=== PATIENT | female | born 2000 | race Caucasian/White ===

== ENCOUNTER 2020-07-28 18:34 | Emergency (ER) | payer OTHER ==
[~2020-07-28 18:34] MED LIST: CARAFATE S500 MG/TSP PO; MACROBID100 MG PO; METRONIDAZOLE500 MG PO; ZOFRAN8 MG PO
[2020-07-28 20:57] LABS: BASOPHIL 0.6 % (0-2); EOSINOPHIL 3.9 % (0-5); HCT 42.4 % (37.0-47.0); HGB 13.7 g/dl (12.5-16.0); LYMPHOCYTE 22.3 % (15-48); MCH 29.7 pg (25.0-31.0); MCHC 32.3 g/dL (32.0-36.0); MCV 91.8 fL (78.0-100.0); MONOCYTE 7.3 % (0-12); MPV 10.5 fL (6.0-9.5); NEUTROPHIL 65.5 % (41-80); NRBC 0; PLT 307 K/uL (150-400); RBC 4.62 M/uL (4.20-5.40); RDW 12.3 % (11.5-14.0); WBC 6.9 K/uL (4.0-10.5)
[2020-07-28 21:13] LABS: CREATININE 0.8 mg/dL (0.51-0.95); POTASSIUM 3.8 mmol/L (3.5-5.1)
[2020-07-28 21:19] LABS: BILIRUBIN NEGATIVE (NEGATIVE); BLOOD NEGATIVE Ery/uL (NEGATIVE); CLARITY CLEAR (CLEAR); COLOR YELLOW (YELLOW); GLUCOSE (U) NORMAL (NORMAL); LEUKOCYTES NEGATIVE Leu/uL (NEGATIVE); NITRITE NEGATIVE (NEGATIVE); PROTEIN NEGATIVE (NEGATIVE); SPECIFIC GRAVITY 1.025 (1.001-1.030); UROBILINOGEN 0.2 mg/dL (0.2-1.0)
[2020-07-28 21:23] LABS: AMPHETAMINES NEGATIVE (NEGATIVE); BARBITURATES NEGATIVE (NEGATIVE); ECSTASY (MDMA) NEGATIVE (NEGATIVE); MARIJUANA (THC) NEGATIVE (NEGATIVE); METHADONE NEGATIVE (NEGATIVE); OPIATES NEGATIVE (NEGATIVE); OXYCODONE NEGATIVE (NEGATIVE)
[2020-07-28] MEDS ORDERED: NAPROXEN500 MG PO (22:10)
== END 2020-07-28 22:20 | disposition home or self-care (01) ==
LOC: FER 18:34
PROVIDERS: Nurse Practitioner Family
DX: S00.83XA Contusion of other part of head, initial encounter (principal); M26.603 Bilateral temporomandibular joint disorder, unspecified; R42 Dizziness and giddiness; F17.210 Nicotine dependence, cigarettes, uncomplicated; W19.XXXA Unspecified fall, initial encounter; Y92.008 Other place in unspecified non-institutional (private) residence as the place of occurrence of the external cause
CPT/HCPCS: 36415; 70450; 70486; 72125; 80048; 80305; 81003; 85025; 96372; J1100; J1885

== ENCOUNTER 2020-09-11 03:01 | Emergency (ER) | payer OTHER ==
[~2020-09-11 03:01] MED LIST changes: +NAPROXEN500 MG PO
[2020-09-11] MEDS ORDERED: ROBAXIN500 MG PO (04:20)
[2020-09-11] MEDS ORDERED: IBUPROFEN800 MG PO (04:20)
[2020-09-11] MEDS ORDERED: NORCO 5-325 TA1 EACH PO (04:20)
== END 2020-09-11 04:35 | disposition home or self-care (01) ==
LOC: FER 03:01
DX: M54.9 Dorsalgia, unspecified (principal)
CPT/HCPCS: J1100; J1885; J2270; J2405; J2800; J7050

== ENCOUNTER 2020-11-15 19:20 | Emergency (ER) | payer OTHER ==
[~2020-11-15 19:20] MED LIST changes: +IBUPROFEN800 MG PO; +NORCO 5-325 TA1 EACH PO; +ROBAXIN500 MG PO
[2020-11-15 21:50] LABS: BILIRUBIN NEGATIVE (NEGATIVE); BLOOD NEGATIVE Ery/uL (NEGATIVE); CLARITY CLEAR (CLEAR); COLOR YELLOW (YELLOW); GLUCOSE (U) NORMAL (NORMAL); LEUKOCYTES NEGATIVE Leu/uL (NEGATIVE); NITRITE NEGATIVE (NEGATIVE); PROTEIN NEGATIVE (NEGATIVE); SPECIFIC GRAVITY 1.025 (1.001-1.030); UROBILINOGEN 0.2 mg/dL (0.2-1.0)
[2020-11-15] MEDS ORDERED: IBUPROFEN800 MG PO (21:59)
[2020-11-15] MEDS ORDERED: ROBAXIN500 MG PO (21:59)
== END 2020-11-15 22:15 | disposition home or self-care (01) ==
LOC: FER 19:20
PROVIDERS: Nurse Practitioner Family
DX: G89.29 Other chronic pain (principal); M54.5 Low back pain; M54.6 Pain in thoracic spine; Z79.899 Other long term (current) drug therapy; X50.0XXA Overexertion from strenuous movement or load, initial encounter
CPT/HCPCS: 81003; 96372; 99283; J1100; J1885

== ENCOUNTER 2021-01-18 22:24 | Emergency (ER) | payer OTHER ==
[2021-01-18 23:10] LABS: BILIRUBIN 3+ mg/dL (NEGATIVE); BLOOD NEGATIVE Ery/uL (NEGATIVE); GLUCOSE (U) NORMAL (NORMAL); LEUKOCYTES TRACE Leu/uL (NEGATIVE); NITRITE POSITIVE (NEGATIVE); PROTEIN 1+ mg/dL (NEGATIVE); UROBILINOGEN >=8.0 mg/dL (0.2-1.0)
[2021-01-18 23:20] LABS: CLARITY SLIGHTLY HAZY (CLEAR); COLOR ORANGE (YELLOW)
[2021-01-18 23:25] LABS: BACTERIA TRACE
[2021-01-18 23:26] LABS: MUCOUS TRACE
[2021-01-18 23:33] LABS: BASOPHIL 0.7 % (0-2); EOSINOPHIL 0.8 % (0-5); HCT 41.4 % (37.0-47.0); HGB 13.8 g/dl (12.5-16.0); LYMPHOCYTE 11.3 % (15-48); MCH 29.2 pg (25.0-31.0); MCHC 33.3 g/dL (32.0-36.0); MCV 87.5 fL (78.0-100.0); MONOCYTE 6.4 % (0-12); MPV 10.7 fL (6.0-9.5); NEUTROPHIL 80.4 % (41-80); NRBC 0; PLT 264 K/uL (150-400); RBC 4.73 M/uL (4.20-5.40); RDW 12.8 % (11.5-14.0); WBC 8.9 K/uL (4.0-10.5)
[2021-01-18 23:45] LABS: BUN/CREAT RATIO (CALC) 12.1 RATIO; CREATININE 0.66 mg/dL (0.51-0.95); POTASSIUM 3.7 mmol/L (3.5-5.1)
[2021-01-19] MEDS ORDERED: PHENERGAN25 M1 PO (00:11)
[2021-01-20] MEDS ORDERED: PROMETHAZINE HC25 MG PR (14:41)
== END 2021-01-19 00:40 | disposition home or self-care (01) ==
LOC: FER 22:24
PROVIDERS: Emergency Medicine
DX: O21.9 Vomiting of pregnancy, unspecified (principal); O99.891 Other specified diseases and conditions complicating pregnancy; M54.5 Low back pain; O99.331 Smoking (tobacco) complicating pregnancy, first trimester; F17.200 Nicotine dependence, unspecified, uncomplicated; Z3A.01 Less than 8 weeks gestation of pregnancy
CPT/HCPCS: 36415; 80048; 81001; 85025; J2550; J7120

== ENCOUNTER 2021-01-20 11:25 | Emergency (ER) | payer OTHER ==
[~2021-01-20 11:25] MED LIST changes: +PHENERGAN25 M1 PO
[2021-01-20 13:05] LABS: BASOPHIL 0.6 % (0-2); EOSINOPHIL 0.5 % (0-5); HCT 43.2 % (37.0-47.0); HGB 14.3 g/dl (12.5-16.0); LYMPHOCYTE 12.9 % (15-48); MCH 29.2 pg (25.0-31.0); MCHC 33.1 g/dL (32.0-36.0); MCV 88.2 fL (78.0-100.0); MONOCYTE 5.5 % (0-12); MPV 10.4 fL (6.0-9.5); NEUTROPHIL 80.2 % (41-80); NRBC 0; PLT 281 K/uL (150-400); RDW 12.8 % (11.5-14.0); WBC 9.4 K/uL (4.0-10.5)
[2021-01-20 13:21] LABS: BUN/CREAT RATIO (CALC) 13.9 RATIO; CREATININE 0.72 mg/dL (0.51-0.95); POTASSIUM 3.5 mmol/L (3.5-5.1)
[2021-01-20] MEDS ORDERED: PROMETHAZINE HC25 MG PR (14:41)
== END 2021-01-20 14:58 | disposition home or self-care (01) ==
LOC: FER 11:25
PROVIDERS: Emergency Medicine
DX: O21.0 Mild hyperemesis gravidarum (principal); O99.891 Other specified diseases and conditions complicating pregnancy; R10.9 Unspecified abdominal pain; Z87.891 Personal history of nicotine dependence; Z3A.08 8 weeks gestation of pregnancy; Z20.822 Contact with and (suspected) exposure to COVID-19
CPT/HCPCS: 36415; 80048; 84702; 85025; J2550; J7120; U0002

== ENCOUNTER 2021-06-02 13:15 | Emergency (ER) | payer OTHER | END 2021-06-02 14:35 | disposition home or self-care (01) | LOC: FER 13:15 | DX: S29.012A Strain of muscle and tendon of back wall of thorax, initial encounter (principal); F17.210 Nicotine dependence, cigarettes, uncomplicated; X50.1XXA Overexertion from prolonged static or awkward postures, initial encounter; Y92.89 Other specified places as the place of occurrence of the external cause; Y99.0 Civilian activity done for income or pay ==

== ENCOUNTER 2021-11-26 11:15 | Emergency (ER) | payer OTHER ==
[~2021-11-26 11:15] MED LIST changes: +CYCLOBENZAPRINE10 MG PO; +PROMETHAZINE HC25 MG PR
[2021-11-26 12:56] LABS: BASOPHIL 0.5 % (0-2); EOSINOPHIL 1.1 % (0-5); HCT 43.6 % (37.0-47.0); HGB 14.7 g/dl (12.5-16.0); LYMPHOCYTE 13.1 % (15-48); MCH 29.8 pg (25.0-31.0); MCHC 33.7 g/dL (32.0-36.0); MCV 88.3 fL (78.0-100.0); MONOCYTE 5.5 % (0-12); MPV 10.2 fL (6.0-9.5); NEUTROPHIL 79.2 % (41-80); NRBC 0; PLT 284 K/uL (150-400); RBC 4.94 M/uL (4.20-5.40); RDW 12.8 % (11.5-14.0); WBC 10.1 K/uL (4.0-10.5)
[2021-11-26 13:19] LABS: CREATININE 0.05 mg/dL (0.51-0.95); POTASSIUM 3.6 mmol/L (3.5-5.1)
[2021-11-26 13:57] LABS: BILIRUBIN 3+ mg/dL (NEGATIVE); BLOOD NEGATIVE Ery/uL (NEGATIVE); CLARITY HAZY (CLEAR); COLOR ORANGE (YELLOW); GLUCOSE (U) NORMAL (NORMAL); LEUKOCYTES 1+ Leu/uL (NEGATIVE); NITRITE POSITIVE (NEGATIVE); PROTEIN NEGATIVE (NEGATIVE); SPECIFIC GRAVITY 1.025 (1.001-1.030)
[2021-11-26 14:17] LABS: BACTERIA TRACE
[2021-11-26] MEDS ORDERED: ONDANSETRON ODT4 MG PO (14:22)
[2021-11-26] MEDS ORDERED: MACROBID100 MG PO (14:22)
== END 2021-11-26 17:34 | disposition home or self-care (01) ==
LOC: FER 11:15
PROVIDERS: Emergency Medicine
DX: N39.0 Urinary tract infection, site not specified (principal); F17.200 Nicotine dependence, unspecified, uncomplicated; Z28.310 Unvaccinated for COVID-19
CPT/HCPCS: 36415; 80048; 81001; 85025; 99283